=== PATIENT | female | born 1995 | race Caucasian/White ===

== ENCOUNTER 2020-06-04 09:43 | Inpatient (IN) ==
[2020-06-04] MEDS ORDERED: Azithromycin 500 MG in 0.9 % Sodium Chloride 250 ML IVPB ONE (10:13)
[2020-06-04] MEDS ORDERED: Famotidine 20 MG/2 ML VIAL IVP PRN (10:13)
[2020-06-04] MEDS ORDERED: *HR* Nalbuphine 10 MG/ML AMPUL IV PRN (10:13)
[2020-06-04] MEDS ORDERED: Metoclopramide 10 MG/2 ML VIAL IVP PRN (10:13)
[2020-06-04] MEDS ORDERED: Lidocaine 1% 20 ML MDV INFILT PRN (10:13)
[2020-06-04] MEDS ORDERED: Ondansetron 4 MG/2 ML VIAL IVP PRN (10:13)
[2020-06-04] MEDS ORDERED: Naloxone 0.4 MG/ML INJ IVP PRN (10:13)
[2020-06-04] MEDS ORDERED: Ringers Solution, Lactated 1,000 ML IVC SCH (10:15)
[2020-06-04] MEDS ORDERED: miSOPROStoL 25 MCG TABLET VG PRN (10:18)
[2020-06-04] MEDS ORDERED: EPHEDrine 50 MG/ML VIAL IVP PRN (11:45)
[2020-06-04] MEDS ORDERED: Epidural Premix (fent/bupiv) 110 ML EP SCH (11:45)
[2020-06-04 12:28] LABS: Basophils % 0.4 %; Eosinophils # 0.2 K/mcL (0.0-0.6); Eosinophils % 1.6 %; Hematocrit 32.3 % (35.3-44.9); Hemoglobin 9.5 g/dL (11.5-15.4); Immature Granulocytes % 0.7 % (0-4); Immature Platelets 8.7 % (1.1-6.1); Lymphocytes # 1.2 K/mcL (0.6-4.6); Lymphocytes % 12.7 %; Mean Corpuscular HGB Conc 29.4 g/dL (31.6-35.5); Mean Corpuscular Hemoglobin 20.3 pg (28.0-33.3); Mean Corpuscular Volume 68.9 fL (83.0-100.0); Mean Platelet Volume 10.4 fL (9.4-12.4); Monocytes # 0.6 K/mcL (0.0-1.3); Monocytes % 6.5 %; Neutrophils # 7.3 K/mcL (1.6-8.9); Platelet Count 238 K/mcL (140-400); Red Blood Count 4.69 M/mcL (3.82-4.97); Red Cell Distribution Width 21.2 % (11.5-14.5); Segmented Neutrophils % 78.1 %; White Blood Count 9.4 K/mcL (4.3-11.1)
[2020-06-04 12:35] LABS: Amphetamine Screen,Urine Negative ng/mL (Cutoff=1000); Barbiturate Screen,Urine Negative ng/mL (Cutoff=200); Benzodiazepines Screen,Urine Negative ng/mL (Cutoff=200); Cannabinoid Screen,Urine Negative ng/mL (Cutoff = 50); Cocaine Screen,Urine Negative ng/mL (Cutoff= 300); Opiate Screen,Urine Negative ng/mL (Cutoff=300); Phencyclidine Screen,Urine Negative ng/mL (Cutoff=25)
[2020-06-04 12:42] LABS: Anisocytosis 1+ (Not Present); Microcytosis Present (Not Present); Platelet Estimate Normal (Normal); Poikilocytosis 1+ (Not Present)
[2020-06-04 13:30] LABS: Adenovirus Not Detected (Not Detect); Bordetella Pertussis Not Detected (Not Detect); Chlamydophila pneumoniae Not Detected (Not Detect); Coronavirus 229E Not Detected (Not Detect); Coronavirus HKU1 Not Detected (Not Detect); Coronavirus NL63 Not Detected (Not Detect); Coronavirus OC43 Not Detected (Not Detect); Human Metapneumovirus Not Detected (Not Detect); Human Rhinovirus/Enterovirus Not Detected (Not Detect); Influenza A Subtype 2009 H1 Not Detected (Not Detect); Influenza B Not Detected (Not Detect); Mycoplasma pneumoniae Not Detected (Not Detect); Parainfluenza Virus 1 Not Detected (Not Detect); Parainfluenza Virus 2 Not Detected (Not Detect); Parainfluenza Virus 3 Not Detected (Not Detect); Parainfluenza Virus 4 Not Detected (Not Detect); Respiratory Syncytial Virus Not Detected (Not Detect); SARS-CoV-2 Not Detected (Not Detect)
[2020-06-04] MEDS ORDERED: Oxytocin 20 units/ LR 1000 mL 20 UNIT/1,000 ML BAG IVC SCH (20:15)
[2020-06-05] MEDS ORDERED: Ibuprofen 600 MG TABLET PO PRN (00:24)
[2020-06-05] MEDS ORDERED: Acetaminophen 325 MG TABLET PO PRN (00:24)
[2020-06-05] MEDS ORDERED: *HR* HYDROcodone/Acet 5/325 mg TABLET PO PRN (00:24)
[2020-06-05] MEDS ORDERED: Lanolin 7 G OINT...G. TP PRN (00:24)
[2020-06-05] MEDS ORDERED: Benzocaine/Menthol 56 GM AEROSOL SPRAY TP PRN (00:24)
[2020-06-05] MEDS ORDERED: Rho Immune Globulin 1,500 UNIT SYRINGE IM PRN (00:24)
[2020-06-05] MEDS ORDERED: Oxytocin 20 units/ LR 1000 mL 20 UNIT/1,000 ML BAG IVC SCH (00:24)
[2020-06-05] MEDS ORDERED: Measles/Mumps/Rubella Vacc 0.5 ML VIAL SQ PRN (00:24)
[2020-06-05 03:48] LABS: Basophils % 0.2 %; Eosinophils % 0.3 %; Hematocrit 29.6 % (35.3-44.9); Hemoglobin 8.6 g/dL (11.5-15.4); Immature Granulocytes % 0.6 % (0-4); Immature Platelets 7.9 % (1.1-6.1); Lymphocytes # 0.9 K/mcL (0.6-4.6); Lymphocytes % 5.9 %; Mean Corpuscular HGB Conc 29.1 g/dL (31.6-35.5); Mean Corpuscular Hemoglobin 20.2 pg (28.0-33.3); Mean Corpuscular Volume 69.5 fL (83.0-100.0); Monocytes # 0.9 K/mcL (0.0-1.3); Monocytes % 5.9 %; Neutrophils # 13.4 K/mcL (1.6-8.9); Nucleated Red Blood Cells 0.1 /100 WBC (0); Platelet Count 206 K/mcL (140-400); Red Blood Count 4.26 M/mcL (3.82-4.97); Red Cell Distribution Width 20.9 % (11.5-14.5); Segmented Neutrophils % 87.1 %; White Blood Count 15.4 K/mcL (4.3-11.1)
[2020-06-05 03:49] LABS: Eosinophils # 0.1 K/mcL (0.0-0.6)
[2020-06-05 04:08] LABS: Anisocytosis 1+ (Not Present); Microcytosis Present (Not Present); Platelet Estimate Normal (Normal)
[2020-06-05] MEDS ORDERED: Prenatal Vit/FA 1 EACH TABLET PO SCH (09:00)
[2020-06-05 16:16] VITALS: BP 118/77
== END 2020-06-05 23:10 | disposition home or self-care (01) | DRG 560 ==
LOC: 1NENULAB 09:43 → 1NENUOBS 06-05 00:25
PROVIDERS: ADMIT Obstetrics & Gynecology; ATTEND Obstetrics & Gynecology

== ENCOUNTER 2021-10-20 08:08 | Inpatient (IN) ==
[~2021-10-20 08:08] MED LIST: *HR* Nalbuphine 10 MG/ML AMPUL IV PRN; Azithromycin 500 MG in 0.9 % Sodium Chloride 250 ML IVPB PRN; Famotidine 20 MG/2 ML VIAL IVP PRN; Metoclopramide 10 MG/2 ML VIAL IVP PRN; Naloxone 0.4 MG/ML INJ IVP PRN; miSOPROStoL 25 MCG TABLET VG PRN
[2021-10-20] MEDS ORDERED: Ringers Solution, Lactated 1,000 ML IVC SCH (08:15)
[2021-10-20 09:08] LABS: Basophils # 0.1 K/mcL (0.0-0.2); Basophils % 0.6 %; Eosinophils # 0.4 K/mcL (0.0-0.6); Eosinophils % 3.3 %; Hematocrit 32.2 % (35.3-44.9); Hemoglobin 9.2 g/dL (11.5-15.4); Immature Granulocytes % 0.9 % (0-4); Immature Platelets 10.1 % (1.1-6.1); Lymphocytes # 1.8 K/mcL (0.6-4.6); Lymphocytes % 17.5 %; Mean Corpuscular HGB Conc 28.6 g/dL (31.6-35.5); Mean Corpuscular Hemoglobin 19.1 pg (28.0-33.3); Mean Corpuscular Volume 66.8 fL (83.0-100.0); Monocytes # 0.9 K/mcL (0.0-1.3); Monocytes % 8.3 %; Neutrophils # 7.3 K/mcL (1.6-8.9); Platelet Count 271 K/mcL (140-400); Red Blood Count 4.82 M/mcL (3.82-4.97); Segmented Neutrophils % 69.4 %
[2021-10-20 09:10] LABS: Protein/Creatinine Ratio,Urine 0.25 mg/mg (0.00-0.20)
[2021-10-20 09:18] LABS: Amphetamine Screen,Urine Negative ng/mL (Cutoff=1000); Barbiturate Screen,Urine Negative ng/mL (Cutoff=200); Benzodiazepines Screen,Urine Negative ng/mL (Cutoff=200); Cannabinoid Screen,Urine Negative ng/mL (Cutoff = 50); Cocaine Screen,Urine Negative ng/mL (Cutoff= 300); Opiate Screen,Urine Negative ng/mL (Cutoff=300); Phencyclidine Screen,Urine Negative ng/mL (Cutoff=25)
[2021-10-20 09:20] LABS: Alanine Aminotransferase 14 Units/L (7-52); Aspartate Amino Transferase 23 Units/L (13-39); BUN/Creatinine Ratio 16 (6-26); Blood Urea Nitrogen 10 mg/dL (6-20); Lactate Dehydrogenase 140 Units/L (140-271); eGFR For African Americans > 60 (> 60); eGFR For Non-African Americans > 60 (> 60)
[2021-10-20 09:22] LABS: White Blood Count 10.5 K/mcL (4.3-11.1)
[2021-10-20] MEDS ORDERED: EPHEDrine 50 MG/ML VIAL IVP PRN (12:36)
[2021-10-20] MEDS ORDERED: Epidural Premix (fent/bupiv) 110 ML EP SCH (12:45)
[2021-10-20] MEDS ORDERED: Epidural Premix (fent/bupiv) 110 ML EP ONE (12:51)
[2021-10-20] MEDS ORDERED: *HR* Labetalol 20 MG/4 ML SYRINGE IVP ONE (13:46)
[2021-10-20] MEDS ORDERED: Oxytocin 30 UNIT/503 ML BAG IVC ONE (15:31)
[2021-10-20] MEDS ORDERED: Oxytocin 30 UNIT/503 ML BAG IVC SCH (18:12)
[2021-10-20] MEDS ORDERED: Rho Immune Globulin 1,500 UNIT SYRINGE IM PRN (18:12)
[2021-10-20] MEDS ORDERED: Measles/Mumps/Rubella Vacc 0.5 ML VIAL SQ PRN (18:12)
[2021-10-20] MEDS ORDERED: *HR* Oxytocin 10 UNIT/ML VIAL IM ONE (18:12)
[2021-10-20] MEDS ORDERED: Benzocaine/Menthol 56 GM AEROSOL SPRAY TP PRN (18:12)
[2021-10-20] MEDS ORDERED: Ondansetron ODT 4 MG TAB.RAPDIS SL PRN (18:12)
[2021-10-20] MEDS ORDERED: *HR* OxyCODONE Immed Rel 5 MG TABLET PO PRN (18:12)
[2021-10-20] MEDS ORDERED: Lanolin 7 G OINT...G. TP PRN (18:12)
[2021-10-21 03:12] VITALS: O2SAT 99
[2021-10-21 05:22] LABS: Basophils % 0.3 %; Immature Granulocytes % 0.6 % (0-4); Red Blood Count 4.06 M/mcL (3.82-4.97); Red Cell Distribution Width 21.7 % (11.5-14.5)
[2021-10-21 05:23] LABS: Eosinophils # 0.2 K/mcL (0.0-0.6); Eosinophils % 1.7 %; Hemoglobin 7.7 g/dL (11.5-15.4); Immature Platelets 8.8 % (1.1-6.1); Lymphocytes # 1.9 K/mcL (0.6-4.6); Lymphocytes % 16.3 %; Mean Corpuscular HGB Conc 28.5 g/dL (31.6-35.5); Mean Corpuscular Volume 66.5 fL (83.0-100.0); Mean Platelet Volume 11.1 fL (9.4-12.4); Monocytes # 0.7 K/mcL (0.0-1.3); Monocytes % 6.3 %; Platelet Count 210 K/mcL (140-400); Segmented Neutrophils % 74.8 %; White Blood Count 11.4 K/mcL (4.3-11.1)
[2021-10-21 05:24] LABS: Neutrophils # 8.5 K/mcL (1.6-8.9)
[2021-10-21 05:45] LABS: Anisocytosis 2+ (Not Present); Hypochromasia Present (Not Present)
[2021-10-21] MEDS: Ibuprofen 600 MG TABLET PO SCH ×3 (06:10→08:11)
[2021-10-21] MEDS: Acetaminophen 325 MG TABLET PO SCH ×3 (06:10→08:11)
[2021-10-21] MEDS ORDERED: FERROUS SULFATE 325 MG PO SCH (09:00)
[2021-10-21] MEDS ORDERED: Prenatal Vit/FA 1 EACH TABLET PO SCH (09:00)
[2021-10-21 15:23] VITALS: BP 138/80; PULSE 95; TEMP 98.4
== END 2021-10-21 16:17 | disposition home or self-care (01) | DRG 806 ==
LOC: 1NENULAB → 1NENUOBS 18:51
PROVIDERS: ADMIT Obstetrics & Gynecology; ATTEND Obstetrics & Gynecology